=== PATIENT | female | born 1985 | race Caucasian/White ===

== ENCOUNTER 2018-02-01 12:18 | Outpatient (CLI) | payer SELFPAY ==
[2018-02-01 13:17] LABS: HCG Qualitative,Urine Negative (Negative)
--- NOTE | 2018-02-01 14:03 | Cat Scan Report ---
CT abdomen and pelvis without contrast: Left flank pain. Transverse images were obtained from lower chest to the ischium with coronal and sagittal 2-D reformatted images. The visualized lungs are clear. The abdominal organs are unremarkable. The kidneys are well-visualized. No evidence of calculus, mass, or hydronephrosis. The retroperitoneal structures are otherwise also unremarkable. The abdominal aorta is normal in size and contour. The unopacified bowel and mesentery are unremarkable. The appendix cannot be clearly visualized. Imaging of the pelvis demonstrates that the uterus has a central hypodensity which may represent a distended endometrium. The pelvis is not otherwise remarkable. Impressions: 1. Unremarkable urinary tract. 2. Suspect distended endometrium. Consider pelvic ultrasound.
== END 2018-02-01 12:19 | disposition home or self-care (01) ==
LOC: CT 12:18
PROVIDERS: ATTEND Urology
DX: N20.0 Calculus of kidney (principal)
CPT/HCPCS: 74176; 81025

== ENCOUNTER 2020-06-29 15:29 | Emergency (ER) | payer SELFPAY ==
[2020-06-29 15:35] VITALS: BP 133/74
[2020-06-29 16:00] LABS: Basophils # (Auto) 0.1 K/mm3 (0.0-0.1); Basophils % (Auto) 1.1 % (0.0-1.8); Eosinophils # (Auto) 0.2 K/mm3 (0.0-0.4); Eosinophils % (Auto) 2.2 % (0.0-4.3); Hematocrit 38.1 % (30.3-42.9); Hemoglobin 13.1 gm/dl (10.1-14.3); Lymphocytes # (Auto) 2.9 K/mm3 (1.2-5.4); Mean Corpuscular HGB Conc 34 % (30-34); Mean Corpuscular Volume 88 fl (79-97); Monocytes # (Auto) 0.5 K/mm3 (0.0-0.8); Monocytes % (Auto) 4.6 % (0.0-7.3); Platelet Count 299 K/mm3 (140-440); Red Blood Count 4.33 M/mm3 (3.65-5.03); Red Cell Distribution Width 13.2 % (13.2-15.2)
== END 2020-06-29 18:11 | disposition left against medical advice (07) ==
LOC: ED 15:29
DX: O26.891 Other specified pregnancy related conditions, first trimester (principal); Z53.21 Procedure and treatment not carried out due to patient leaving prior to being seen by health care provider
CPT/HCPCS: 36415; 84702; 85025; 86900; 86901